=== PATIENT | female | born 1945 ===

== ENCOUNTER 2023-02-26 06:20 | Day surgery (SDC) | payer OTHER ==
[~2023-02-26] VITALS: Ht 154.9 cm; Wt 72.6 kg
[~2023-02-26 06:20] MED LIST: MICARDIS80 MG PO; NORVASC5 MG PO; SYNTHROID75 MCG PO; TOPROL XL25 M1 PO; XARELTO20 MG PO
[2023-02-26] MEDS ORDERED: IBU600 MG PO (14:26)
== END 2023-02-26 16:55 | disposition home or self-care (01) ==
LOC: CIR.AMB 06:20
PROVIDERS: ATTEND Obstetrics & Gynecology Gynecology
DX: N84.0 Polyp of corpus uteri (principal); I10 Essential (primary) hypertension; E03.9 Hypothyroidism, unspecified; Z20.822 Contact with and (suspected) exposure to COVID-19